=== PATIENT | male | born 1960 | race Caucasian/White ===

== ENCOUNTER 2017-02-19 07:34 | Emergency (ER) | payer BC ==
--- NOTE | ~2017-02-19 | CT4 ---
[facility] A Service of [facility] [place] RADIOLOGY TEXT RESULTS PATIENT: MALIA RAPP LOCATION: SED : 62 UNIT #: [id number] AGE: [address]: Minesh Amato MD SEX: M ORDER DR: [id number] [place] [id number] E MR#: [id number] Acc #: [id number] NAME: MALIA RAPP. : 1960 SEX: M STUDY DATE/TIME: 02/19/2017 8:07 UNIT: SED ROOM: STUDY DESCRIPTION: CT Abd and Pelv Wo Cont Attending Physician: Minesh Amato M.D. Ordering Physician: Minesh Amato M.D. Primary Care Physician: Janet Ríos M.D. MEDICAL IMAGING REPORT This report is preliminary unless electronic signature is present. EXAM CT of the abdomen and pelvis HISTORY Pain. Abdomen pain. Right side flank pain. Blood pressure 178/107, started at 06:00 hours. Nausea, vomiting. TECHNIQUE CT of the abdomen and pelvis performed without oral or intravenous contrast. This CT exam was performed with one or more of the following radiation dose reduction techniques: automatic exposure control, adjustment of mA and/or kV according to patient size, and iterative reconstruction. COMPARISON None FINDINGS Calcified granuloma at the right lung base. Dependent atelectasis bilaterally. Inferior heart and pericardium unremarkable. Liver, gallbladder, spleen, pancreas, adrenal glands unremarkable. Left kidney shows a punctate sand-like non-obstructing calculus in lower pole. Left kidney and ureter otherwise unremarkable. Right kidney shows mild hydronephrosis and proximal hydroureter to the level of a 5-6 mm proximal ureteral calculus located at the upper L3 vertebral body level. There is right perinephric and periureteral inflammatory change. No significant fluid collection. There is a trace amount of fluid suggested anterior to the right renal pelvis. Distal to the calculus the right ureter is decompressed and unremarkable. CT PELVIS: No inguinal adenopathy. Prior right inguinal hernia repair. [facility] A Service of [facility] RADIOLOGY TEXT RESULTS PATIENT: MALIA RAPP [facility] [facility] [id number] : 62 UNIT #: [id number] AGE: [address]: Minesh Amato MD SEX: M ORDER DR: Urinary bladder unremarkable. Mild prostatic enlargement. Correlate with serum PSA. No pelvic fluid collection. No pelvic or retroperitoneal adenopathy. Esophagus, stomach, small bowel unremarkable. Status post appendectomy. Scattered uncomplicated colonic diverticula. Unopacified vascular structures unremarkable. Multilevel degenerative change in the spine. Probably most pronounced at the L4, L5, L5-S1 levels with posterior disc osteophyte complexes. There is probably moderate central spinal narrowing L4-L5, narrowing of the bilateral lateral recesses. Narrowing of the bilateral neural foramina. No acute appearing bony abnormality. IMPRESSION 1. 5-6 mm proximal right ureteral calculus at the upper L3 vertebral body level resulting in mild right hydronephrosis and proximal hydroureter with associated perinephric and periureteral inflammatory change. Trace amount of fluid adjacent to the anterior aspect of the right renal pelvis but no drainable fluid collection. 2. Punctate non-obstructing calculus lower pole left kidney. 3. Gallbladder, pancreas unremarkable. 4. Prior right inguinal hernia repair. No residual hernia. 5. Mild prostatic enlargement. Correlate with serum PSA. 6. Uncomplicated colonic diverticulosis. 7. Degenerative changes in the lumbar spine. See discussion above. Dictated by... Salvatore Vays M.D. THIS IS AN ELECTRONICALLY VERIFIED REPORT Salvatore Vyas M.D. at 02/20/2017 2:25 PM Liset TD: 02/19/2017 15:43 JOB #: [id number] MEDICAL IMAGING REPORT Page 1 of 1
[2017-02-19] MEDS ORDERED: LISINOPRIL PO (07:40)
[2017-02-19 08:14] LABS: BASOPHIL% 0.5 % (0-2.5); EOSINOPHIL# 0.2 X10e3 (0-0.7); EOSINOPHIL% 1.6 % (0.0-7.0); HEMOGLOBIN 15.6 gm/dL (13.0-16.0); LYMPHOCYTE# 2.4 X10e3 (1.0-3.5); LYMPHOCYTE% 22.8 % (17.0-45.0); MEAN CELL VOLUME 95.3 FL (83-96); MEAN CORPUSCULAR HEMOGLOBIN 32.3 PG (28-34); MEAN CORPUSCULAR HGB CONC 33.9 g/dL (30-36); MONOCYTE% 9.9 % (3.0-12.0); NEUTROPHIL# 6.8 X10e3 (1.5-7.1); NEUTROPHIL% 65.2 % (40-75); PLATELET COUNT 189 X10e3 (140-420); RED BLOOD COUNT 4.83 X10e (3.90-5.60); RED CELL DISTRIBUTION WIDTH 13.8 % (11.0-15.5); WHITE BLOOD COUNT 10.4 X10e3 (4.0-10.5)
[2017-02-19 08:16] LABS: DIFF IND NO
[2017-02-19 08:30] LABS: BUN/CREATININE RATIO 26.15; CALCIUM SERUM 9.2 mg/dL (8.4-10.2); CREATININE SERUM 1.3 mg/dL (0.6-1.4); POTASSIUM 3.8 mmol/L (3.5-5.1)
[2017-02-19 10:17] LABS: URINE SOURCE CLEAN CATCH
[2017-02-19 10:21] LABS: URINE APPEARANCE CLEAR; URINE BILIRUBIN NEG (NEG); URINE BLOOD 3+ (NEG); URINE COLOR YELLOW; URINE GLUCOSE NEG (NORM); URINE KETONE NEG (NEG); URINE LEUKOCYTE ESTERASE NEG (NEG); URINE NITRATE NEG (NEG); URINE PROTEIN NEG (NEG); URINE UROBILINOGEN 0.2 MG/DL (NORM)
[2017-02-19 10:22] LABS: MICRO INDICATED? YES
[2017-02-19 10:24] LABS: CULTURE INDICATED? NO; URINE BACTERIA NEG (NEG); URINE HYALINE CAST 0-2 /[HPF]; URINE RBC 0-2 /[HPF] (0-2); URINE WBC NEG /[HPF] (0-5)
== END 2017-02-19 11:01 | disposition home or self-care (01) ==
LOC: SED 07:34
PROVIDERS: Emergency Medicine
DX: N13.2 Hydronephrosis with renal and ureteral calculous obstruction (principal); I10 Essential (primary) hypertension; Z79.899 Other long term (current) drug therapy
CPT/HCPCS: 36415; 74176; 80048; 81003; 85025; 96361; 96374; 96375; 99284; J1170; J1885; J2405